=== PATIENT | female | born 1960 | race Hispanic/Latino ===

== ENCOUNTER 2022-08-21 08:10 | Day surgery (SDC) | payer SELFPAY ==
--- NOTE | 2022-08-19 10:04 | RAD REPORT ---
EXAM DESCRIPTION: RAD - Chest Pa And Lat (2 Views) - 08/19/2022 9:53 am CLINICAL HISTORY: Pre op pending patella repair Chest pain. COMPARISON: No comparisons FINDINGS: The lungs are clear. Moderate cardiomegaly. No displaced fractures.
[2022-08-19 10:26] LABS: Potassium 3.8 mmol/L (3.5-5.1)
[2022-08-19 10:50] LABS: Hematocrit 43.5 % (36.0-45.0); Lymphocytes % 28.9 % (15.3-44.8); MPV 8.8 fL (7.6-11.3); RBC Red Blood Cell Count 4.83 M/uL (3.86-4.86)
[2022-08-19 10:54] LABS: Protime INR 0.98
--- NOTE | 2022-08-20 16:59 | EKG ---
Test Date: 2022-08-19 Test Time: 09:41:20 Bed And Breakfast Cook: CRISTINO MEASUREMENT RESULTS: Intervals: Rate: 77 VA: 150 QRSD: 88 QT: 368 QTc: 416 [place]: P: 54 VA: 150 QRS: 30 T: 31 INTERPRETIVE STATEMENTS: Normal sinus rhythm Normal ECG Compared to ECG 10/12/2002 10:42:00 Myocardial infarct finding no longer present Electronically Signed On 08-20-22 16:55:12 [employer] WORK[employer] by Chirag Medina
[2022-08-21] MEDS ORDERED: Ringers Lactate 1,000 ML IV ONE (08:28)
[2022-08-21] MEDS ORDERED: CEFAZOLIN SODIUM 2 GM/VIAL ONE (08:28)
[2022-08-21] MEDS ORDERED: LIDOCAINE 2% MPF 5 ML VIAL ONE ×2 (10:17→10:52)
[2022-08-21] MEDS ORDERED: FENTANYL CITR 100 MCG/2 ML ONE ×2 (10:17→11:04)
[2022-08-21] MEDS ORDERED: MIDAZOLAM HCL 2 MG/2 ML INJ ONE (10:18)
[2022-08-21] MEDS ORDERED: EPINEPHRINE/PF 1 MG/ML AMP ONE (10:18)
[2022-08-21] MEDS ORDERED: dexAMETHasone 4 MG/ML VIAL ONE ×2 (10:18→10:52)
[2022-08-21] MEDS ORDERED: ONDANSETRON 4 MG/2 ML VIAL ONE (10:52)
[2022-08-21] MEDS ORDERED: propofoL 200 MG/20 ML VIAL IV ONE (10:52)
[2022-08-21] MEDS ORDERED: MEPERIDINE HCL 50 MG/ML ONE (11:31)
--- NOTE | 2022-08-21 12:49 | P.BOP ---
Preoperative diagnosis: left patella fracture Postoperative diagnosis: same Primary procedure: open reduction internal fixation left patella fracture Coning Machine Operator: NONE,NONE Estimated blood loss: 20 cc Specimen: none Findings: see dictation Anesthesia: General Complications: None Implants: 2- 1.6 mm K-wire, 18 gauge sternal wire Fluids & blood products: per anesthesia record; TT: 65 mins @ 300 mmHg Transferred to: Recovery Room Condition: Good
[2022-08-21 13:28] VITALS: O2SAT 96
--- NOTE | 2022-08-21 13:35 | RAD REPORT ---
EXAM DESCRIPTION: RAD - Knee Left 2 View - 08/21/2022 1:03 pm CLINICAL HISTORY: Patellar fracture FINDINGS: Five fluoroscopic intraoperative films obtained. They demonstrate wires and pins affixing a patellar fracture. Fluoroscopy time 0.2 minutes Surgery performed by Dr. Spears
--- NOTE | 2022-08-21 13:46 | RAD REPORT ---
EXAM DESCRIPTION: RAD - Knee Left 2 View - 08/21/2022 1:39 pm CLINICAL HISTORY: Patellar fracture FINDINGS: Wires and pins affix a patellar fracture in good alignment
[2022-08-21 14:52] VITALS: BP 162/83; TEMP 97
--- NOTE | 2022-08-22 11:16 | OP ---
Date of Procedure: 08/21/2022 Surgeon: Glen Spears MD Preoperative Diagnosis: Left patella fracture. Postoperative Diagnosis: Left patella fracture. Procedure Performed: Open reduction and internal fixation of patella fracture. Anesthesia: General LMA. Fluids: Per Anesthesia record. Estimated Blood Loss: 20 cc. Complications: None. Implants: Two 1.6 mm K-wires and an 18-gauge sternal wire. Tourniquet Time: 65 minutes at 300 mmHg. Indication For Procedure: Romie is a 62-year-old female, who presented to my clinic after sustaining a fall onto her left knee. The patient was noted to have a displaced patella fracture. The patient continued to follow up after her injury, but was not able to make a straight leg raise. We discussed with the patient at length risks and benefits associated with operative and nonoperative treatment. Given the lack of extensor mechanism, she elected proceed with operative treatment. Description Of Procedure: After informed consent was obtained, the patient was identified in the pre operative holding area. The left lower extremity was marked. The patient was then brought back to [facility] operating room, transferred to the operating table in supine fashion, and placed under general LMA anesthesia. She had been given a femoral nerve block in the PACU by the Anesthesia team prior to be ing brought back to the operating room. The left lower extremity was then prepped and draped in usua l sterile fashion. A time-out was initiated. The correct patient and procedure confirmed and identi fied. The patient did receive her preoperative prophylactic antibiotics. Esmarch was used to exsang uinate the left lower extremity and the tourniquet was inflated to 300 mmHg. Approximately a 12 cm l ongitudinal incision was made, centered over the patella. Dissection was then taken down to the angulo lla and extensor mechanism and patella fracture was identified. Fracture hematoma was then evacuated as well. Using 2 pointed reduction clamps, the fracture was reduced. Fluoroscopy was used to confi rm the reduction. Two 1.6 mm K-wires were placed in parallel fashion from inferior to superior fashi on superior through the patella. There was good overall alignment of the pin noted on AP and lateral views and overall maintenance reduction. An 18-gauge sternal wire was then used to wrap around the wires in a tension band technique using a 14-gauge Angiocath. Decompression was then and tightened [facility] guidewire and there was overall good maintenance of reduction. The pins were then cut to minimize any irritation of the soft tissues. The wound was then irrigated thoroughly with normal saline. Fi nal x-rays were taken, which demonstrated overall good alignment of the hardware as well as maintenan ce of reduction. The deep tissue was approximated using 0 Vicryl. Skin was approximated using a 2-0 Vicryl and katalina. Sterile dressings were applied. Tourniquet was let down. The patient was awak ened and transferred to PACU in stable condition with a knee immobilizer. Postoperative Plan: The patient will be nonweightbearing at this time secondary to femoral nerve blo ck and to follow up next week for wound check. She will begin weightbearing as tolerated at that jose daniel e in a knee immobilizer. AALIYAH/MONALISAL Voice ID: [id number] Report ID: [id number]
== END 2022-08-21 14:57 | disposition home or self-care (01) ==
LOC: OR 08:10
PROVIDERS: ATTEND Orthopaedic Surgery Sports Medicine
PROC: 0QSF04Z Reposition Left Patella with Internal Fixation Device, Open Approach (ICD-10-PCS; principal; 2022-08-21 10:00)
DX: S82.042A Displaced comminuted fracture of left patella, initial encounter for closed fracture (principal); I10 Essential (primary) hypertension; E03.9 Hypothyroidism, unspecified
CPT/HCPCS: 36415; 71046; 80048; 85025; 85610; 85730; 93005; J0171; J1100; J2001; J2175; J2250; J2405; J2704; J3010; J7120